=== PATIENT | male | born 1985 | race American Indian/Alaskan Native ===

== ENCOUNTER 2018-01-31 19:31 | Emergency (ER) | payer SELFPAY ==
[2018-01-31] MEDS ORDERED: NACL 0.9% 0 ML IR ONE (20:26)
[2018-01-31 20:32] LABS: BUN/Creatinine Ratio 10; Blood Urea Nitrogen 9 mg/dL (9-20); Calcium 8.8 mg/dL (8.4-10.2); Hemolysis Index 5
[2018-01-31 20:35] LABS: Basophils % (Auto) 0.6 % (0.0-1.8); Eosinophils # (Auto) 0.1 K/mm3 (0.0-0.4); Hematocrit 43.8 % (35.5-45.6); Hemoglobin 14.5 gm/dl (11.8-15.2); Lymphocytes # (Auto) 2.4 K/mm3 (1.2-5.4); Lymphocytes % (Auto) 37.9 % (13.4-35.0); Mean Corpuscular HGB Conc 33 % (32-34); Mean Corpuscular Hemoglobin 30 pg (28-32); Mean Corpuscular Volume 90 fl (84-94); Monocytes # (Auto) 0.6 K/mm3 (0.0-0.8); Monocytes % (Auto) 9.3 % (0.0-7.3); Platelet Count 119 K/mm3 (140-440); Red Blood Count 4.85 M/mm3 (3.65-5.03); Red Cell Distribution Width 14.3 % (13.2-15.2)
[2018-01-31] MEDS ORDERED: TYLENOL PO ONE (21:04)
[2018-01-31] MEDS ORDERED: TENIVAC IM ONE (21:05)
--- NOTE | 2018-01-31 21:29 | Emergency Department Report ---
HPI - General Chief Complaint: Psych Time Seen by Provider: 01/31/18 20:24 - HPI HPI: The patient is a 32-year-old male with a significant history of mental health disease, who presents for evaluation of mental health. The patient reports constant and severe status or hopelessness for the past one day. He also reports positive suicidal ideations and attempted suicide. The patient cut his left wrist at 5 PM earlier today and attempted to commit suicide. The patient denies fever, headache, unexplained weight loss or weight gain, heat or cold intolerance, skin, hair, or nail changes, neuro deficits, homicidal ideations, or auditory or visual hallucinations. ED Past Medical Hx - Past Medical History Previous Medical History?: No - Surgical History Past Surgical History?: No - Social History Smoking Status: Never Smoker Substance Use Type: None ED Review of Systems ROS: Stated complaint: SUICIDAL IDEATIONS Other details as noted in HPI Constitutional: denies: fever ENT: denies: throat or neck pain Respiratory: denies: cough, shortness of breath Cardiovascular: denies: chest pain Endocrine: denies unexplained weight loss or gain Gastrointestinal: denies: abdominal pain, nausea Genitourinary: denies: dysuria Musculoskeletal: denies: leg swelling Skin: denies: rash Neurological: denies: headache Hematological/Lymphatic: denies: easy bleeding or easy bruising Psych: reports sadness or hopelessness Physical Exam - Physical Exam Vital Signs: Vital Signs 01/31/18 01/31/18 19:44 19:49 Temperature 98.6 F Pulse Rate 89 Respiratory 18 20 Rate Blood Pressure 110/61 O2 Sat by Pulse 95 98 Oximetry Physical Exam: General: well-nourished, well-developed, no acute distress Head: Normocephalic, atraumatic Eyes: normal sclera ENT: Mucous membranes are pink and moist Neck: trachea midline, neck supple, No neck stiffness, no cervical adenopathy Respiratory: Breath sounds equal bilaterally, no wheezing, rales, or rhonchi Cardio: S1 and S2 present, no murmurs, rubs, gallops, capillary refill is brisk Abdomen: Normoactive bowel sounds, soft abdomen, no tenderness Chest WALL/Back: No tenderness to palpation of the chest wall, no CVA tenderness with percussion Musc: Multiple old well-healed and new superficial cuts to the left wrist present, 2 new superficial cuts present with minimal bleeding, wound edges nearly approximated, distal sensation, motor deficit, and pulses intact at the left wrist/hand No pitting edema Skin: No rash Neuro: no facial drooping, normal speech Psych: Flat affect, poor insight, depressed mood, patient withdrawn, reporting continued suicidal ideation ED Course Vital Signs 01/31/18 01/31/18 19:44 19:49 Temperature 98.6 F Pulse Rate 89 Respiratory 18 20 Rate Blood Pressure 110/61 O2 Sat by Pulse 95 98 Oximetry ED Medical Decision Making - Lab Data Result diagrams: 01/31/18 20:02 01/31/18 20:02 - Medical Decision Making The patient was seen and examined by myself. The patient is placed on a groundwater monitoring technician and continuous pulse ox. On initial evaluation, the patient was found to be in no distress. Labs are obtained. The patient's left wrist wounds were cleaned with soap and water. As the patient's wounds are superficial and wound edges are nearly approximated, laceration repair is not warranted at this time. The patient was given a tetanus immunization. The patient is given a tablet of Tylenol for his pain. The patient's superficial cuts were approximated with Dermabond. Lab results are grossly unremarkable. The patient is medically clear. Mental health is consulted. Mental health evaluates the patient and agrees that the patient is at risk of harm to self. A 1013 is completed. The patient will be admitted to a psychiatric facility once bed placement is obtained. Critical care attestation.: If time is entered above; I have spent that time in minutes in the direct care of this critically ill patient, excluding procedure time. ED Disposition Clinical Impression: Suicidal behavior with attempted self-injury, Suicidal ideation Disposition: [id number] PSY HOSP/PSY UNIT Is pt being admited?: No Does the pt Need Aspirin: No Condition: Serious Referrals: PRIMARY CARE, [Primary Care Provider] - 3-5 Days Time of Disposition: 21:29
[2018-01-31] MEDS ORDERED: ALUM-MAG HYDROX-SIMETH 200-200-20MG/5ML PO PRN (21:34)
[2018-01-31] MEDS ORDERED: MILK OF MAGNESIA PO PRN (21:34)
--- NOTE | 2018-02-01 14:01 | Consultation ---
History of Present Illness - Reason for Consult Consult date: 02/01/18 Reason for consult: Mental Health Evaluation Requesting physician: GREGORY DESAI - Chief Complaint Chief complaint: "I wanted to " - History of Present Psychiatric Illness 32-year-old AA male presenting to the ER for SI's. Today the patient is calm and cooperative during the assessment. He stated that his family and girlfriend is doing him "wrong". Also, he stated that he is experiencing life stressors ( financial problems and wanting to be a better father). He stated after arguing with his girlfriend, he decided that he wanted to , so he cut his left wrist. He stated that he had no reason to live. He denies any previous suicide attempts or mental health dx. He acknowledged experiencing erratic sleep lately , but denies any manic episodes in the past. He denies HI's and AVH's. He would not confirm or deny SI's when asked. He admit to smoking marijuana and consumption of alcohol (etoh) "sometimes." Medications and Allergies Allergies Allergy/AdvReac Type Severity Reaction Status Date / Time No Known Allergies Allergy Unverified 01/31/18 19:48 Active Meds: Active Medications Al Hydrox/Mg Hydrox/Simethicone (Alum-Mag Hydrox-Simeth [id number]/5ml) 30 ml PO Q4HR PRN PRN Reason: Indigestion Magnesium Hydroxide (Milk Of Magnesia) 30 ml PO Q12HR PRN PRN Reason: Constipation Past psychiatric history - Past Medical History Past Medical History: No medical history Past Surgical History: No surgical history - past Psychiatric treatment and history psychiatric treatment history: Denies a psy hx and a fam psy hx. - Social History Social history: lives with family Mental Status Exam - Vital signs Last Vital Signs Temp 98.6 F 01/31/18 19:44 Pulse 89 01/31/18 19:44 Resp 18 02/01/18 11:47 BP 110/61 01/31/18 19:44 Pulse Ox 98 02/01/18 11:47 - Exam Narrative exam: MSE: Appearance: calm, cooperative Behavior: regular eye contact Speech: regular rate and tone Mood: withdrawn Affect: congruent to mood Thought Process: circumstantial Thought Content: denies HI's and AVH's, he would not confirm or deny SI's Motor Activity: lying in bed Cognition: A/O x 3 Insight: variable Judgment: poor Results Result Diagrams: 01/31/18 20:02 01/31/18 20:02 Abnormal lab results 01/31/18 01/31/18 01/31/18 Range/Units 20:02 20:02 20:02 Plt Count 119 L (140-440) K/mm3 Lymph % (Auto) 37.9 H (13.4-35.0) % Sully % (Auto) 9.3 H (0.0-7.3) % Salicylates < 0.3 L (2.8-20.0) mg/dL Acetaminophen < 5.0 L (10.0-30.0) ug/mL All other labs normal. Assessment and Plan Assessment and plan: Impression: MDD, Severe Type. Today the patient is calm and cooperative during the assessment. UDS/UA uncollected. DDx: R/O Bipolar DO Recommendation/Plan: Continue 1013 with placement to inpatient psy services. Start Remeron 15 mg PO HS for depression. Discussed possible suicidality/ medication induced pascale with patient reference Remeron. Discussed generalized coping skills with patient. Informed the patient's assigned nurse that the UDS/ UA need to be collected.
[2018-02-01 20:35] LABS: Bilirubin,Urine NEG (Negative); Blood,Urine NEG (Negative); Color,Urine Yellow (Yellow); Mucus,Urine 3+ /HPF; Protein,Urine <15 mg/dL mg/dL (Negative)
[2018-02-01 20:42] LABS: Amphetamine Screen,Urine PRESUMPTIVE NEGATIVE; Benzodiazepines Screen,Urine PRESUMPTIVE NEGATIVE; Cannabinoid Screen,Urine PRESUMPTIVE NEGATIVE; Cocaine Screen,Urine PRESUMPTIVE NEGATIVE; Methadone Screen,Urine PRESUMPTIVE NEGATIVE; Opiate Screen,Urine PRESUMPTIVE NEGATIVE
[2018-02-01] MEDS: REMERON PO SCH (22:48)
--- NOTE | 2018-02-02 17:59 | Progress Note ---
Subjective - Reason for Consult Consult date: 02/02/18 Reason for consult: follow up - Chief Complaint Chief complaint: "I don't want to be here." 32-year-old AA male presented to the ER after cutting his wrist in a suicide attempt. Today the patient is calm and cooperative during the assessment. UDS is negative. He states he made a bad decision by hurting himself. He states, " I was raised better than that." He denies harming himself in the past. He states he went on job interview that morning and was thinking about how he is not providing for his children. He states he has been experiencing depression. He denies suicidal ideation now. He talked about his children often during the interview. He was hesitant in talking about his /girlfriend. Mental Status Exam - Vital signs Last Vital Signs Temp 97.3 F L 02/02/18 07:53 Pulse 63 02/02/18 07:53 Resp 18 02/02/18 13:25 BP 102/52 02/02/18 07:53 Pulse Ox 100 02/02/18 13:25 - Exam Narrative exam: Appearance: calm, cooperative Behavior: regular eye contact Speech: regular rate and tone Mood: depressed Affect: congruent to mood Thought Process: logical Thought Content: recent suicide attempt. he denies SI/HI or AVH Motor Activity: no abnormal movements Cognition: A/O x 3 Insight: variable Judgment: poor Assessment and Plan Impression: MDD, Severe Type. Today the patient is calm and cooperative during the assessment. UDS is negative. He states he made a bad decision by hurting himself. He states, "I was raised better than that." He denies harming himself in the past. He states he went on job interview that morning and was thinking about how he is not providing for his kids. He states he has been experiencing depression. He denies suicidal ideation now. He talked about his children often during the interview. DDx: R/O Bipolar DO Recommendation/Plan: Continue 1013 with placement to inpatient psy services. Continue Remeron 15 mg PO HS for depression.
[2018-02-02] MEDS: REMERON PO SCH (22:10)
--- NOTE | 2018-02-03 18:53 | Progress Note ---
Subjective - Reason for Consult Consult date: 02/03/18 Reason for consult: follow up - Chief Complaint Chief complaint: "I want to see my kids." 32-year-old AA male presented to the ER after cutting his wrist in a suicide attempt. Today the patient is calm and cooperative during the assessment. UDS is negative. He states he made a bad decision by hurting himself. He denies harming himself in the past. He denies suicidal ideation now. He talked about how he wants to see his children. He took remeron last night but does not want to take it tonight. Mental Status Exam - Vital signs Last Vital Signs Temp 98.3 F 02/03/18 08:41 Pulse 77 02/03/18 08:41 Resp 20 02/03/18 08:41 BP 109/85 02/03/18 08:41 Pulse Ox 100 02/03/18 08:41 - Exam Narrative exam: Appearance: calm, cooperative Behavior: regular eye contact Speech: regular rate and tone Mood: depressed Affect: congruent to mood Thought Process: logical Thought Content: he denies SI/HI or AVH Motor Activity: no abnormal movements Cognition: A/O x 3 Insight: variable Judgment: variable Assessment and Plan Impression: MDD, Severe Type. Today the patient is calm and cooperative during the assessment. UDS is negative. He states he made a bad decision by hurting himself. He denies suicidal ideation. DDx: R/O Bipolar DO Recommendation/Plan: Continue 1013 and reevaluate in 24 hours to determine need for ongoing hold. Continue Remeron 15 mg PO HS for depression.
[2018-02-03] MEDS: REMERON PO SCH (22:38)
--- NOTE | 2018-02-04 13:08 | Progress Note ---
Subjective - Reason for Consult Consult date: 02/04/18 Reason for consult: Psychiatry Follow-up - Chief Complaint Chief complaint: "I am okay now" 32-year-old AA male presented to the ER after cutting his wrist in a suicide attempt. Today the patient is calm and cooperative during the assessment. He is adamant that he made a "terrible mistake" by cutting himself. He denies SI/HI's and AVH's. He denies any side effects of his medication. He stated smoking marijuana "often." Mental Status Exam - Vital signs Last Vital Signs Temp 97.6 F 02/04/18 07:00 Pulse 71 02/04/18 07:00 Resp 17 02/03/18 21:28 BP 127/96 02/04/18 07:00 Pulse Ox 99 02/03/18 21:28 - Exam Narrative exam: MSE: Appearance: calm, cooperative Behavior: regular eye contact Speech: regular rate and tone Mood: "okay" Affect: congruent to mood Thought Process: circumstantial Thought Content: denies SI/HI's and AVH's Motor Activity: lying in bed Cognition: A/O x 3 Insight: fair Judgment: fair Assessment and Plan Impression: MDD, Severe Type. R/O Cannabis Use DO. Today the patient is calm and cooperative during the assessment. His UDS was collected after being in the ER for 24 hours. DDx: R/O Bipolar DO Recommendation/Plan: Gather collateral information and reevaluate the 1013 in 24 hours to determine proper dispo. Continue Remeron 15 mg PO HS for depression. Discussed possible suicidality/medication induced pascale with patient reference Remeron. Discussed generalized coping skills with patient. Discussed the importance to abstain from recreational drug use with patient.
[2018-02-04] MEDS: REMERON PO SCH (21:42)
--- NOTE | 2018-02-05 12:58 | Progress Note ---
Subjective - Reason for Consult Consult date: 02/05/18 Reason for consult: Psychiatry Follow-up - Chief Complaint Chief complaint: "I have learned my lesson" 32-year-old AA male presented to the ER after cutting his wrist in a suicide attempt. Today the patient is calm and cooperative during the assessment. Per collateral information from his fiance Ms Jenny Hooker at [phone], she stated that the patient got upset after an argument and "acted out" by cutting himself. She stated that she don't believe he wanted to kill himself. She denies any previous suicide attempts by the patient. She stated that he has learned his lesson and don't believe he will harm himself again. She stated that she feel safe for the patient to return home once discharged. The patient plan to follow up with outpatient psy/rehab services once discharged. He denies SI/HI's and AVH's. He denies any side effects of his medication. Mental Status Exam - Vital signs Last Vital Signs Temp 97.9 F 02/04/18 20:05 Pulse 70 02/04/18 20:05 Resp 18 02/04/18 20:05 BP 119/73 02/04/18 20:05 Pulse Ox 98 02/04/18 20:05 - Exam Narrative exam: MSE: Appearance: calm, cooperative Behavior: regular eye contact Speech: regular rate and tone Mood: "okay" Affect: congruent to mood Thought Process: logical Thought Content: denies SI/HI's and AVH's Motor Activity: lying in bed Cognition: A/O x 3 Insight: appropriate Judgment: appropriate Assessment and Plan Impression: MDD, Severe Type. R/O Cannabis Use DO. Today the patient is calm and cooperative during the assessment. The patient is no threat to self. DDx: R/O Bipolar DO, R/O Personality DO I. This screening and assessment is based on information collected from the following sources: II. SUICIDE RISK SCREENING (within last 30 days): A.) Suicidal thoughts/behaviors: Yes SUICIDE RISK ASSESSMENT III. FACTORS THAT INCREASE RISK: A.) Demographic and Substance Use Factors: Yes (Marijuana) B.) Current/Recent Factors (within past 3 months): Psychosocial/Environmental Factors: Life Stressors Physical Illness: None Cognitive/Psychological Factors: None C.) Historical Factors: None D.) Diagnostic/Symptom/Treatment Factors: None E.) Acute Risk Factor Severity (DESC; MILD/MOD/SEVERE): Mild Other factors for this individual that increase risk: None IV. FACTORS THAT DECREASE RISK: Resilience/Protective Factors: Patient want to decrease his stress Other factors for this individual that decrease risk: Patient denies a desire to harm self V. Clinician's Formulation of Risk and Determination of level of Care: This is a 32-year-old AA male who cut his left wrist prior to his arrival to the ER. He stated that he was going through "a lot mentally" and decide to cut his left wrist. The patient has a superficial laceration. He acknowledged that he should have not injured himself. He stated that his decision was a bad choice. He stated that he will follow-up with outpatient psy/rehab services once discharged. Since being hospitalized the patient has consistently denied the desire to harm himself. Additionally, he has become insightful about how to better address his current issues. The patient is not impaired by substance. He is able to take care of his ADLs and is not at imminent risk of harm to self or others. Consequently, it is the opinion of the treatment team that the patient is at low risk of suicide and does not meet criteria to continue an involuntary psychiatric hold. Estimation of Imminent Risk: Low due to the above explanation. Determination of Level of Care based on Suicide Risk: Outpatient follow-up. Narrative description of clinical reasoning. Given the fact that the patient is willing to engage in outpatient/rehab services care and has a supportive network (his fiance Jenny hooker), it is reasonable to expect that the patient will seek services. At this current time, he is not impulsive and does not have any risk factors to increase the likelihood of his impulsive behavior. Therefore, it is reasonable to expect that the patient will engage in outpatient /rehab services which will reduce further unsafe behaviors. . Plan and Interventions based on Suicide Risk: This patient will likely be stepped down to an outpatient mental health center in the community upon discharge and follow-up within 7 days of his discharge from the hospital. VII. Discharge/After Hours Support Plan: Patient can return back to the ER, call 911 or crisis line if symptoms of depression, anxiety, suicidality return. Recommendation/Plan: Rescind 1013. Continue Remeron 15 mg PO HS for depression. Discussed possible suicidality/medication induced pascale with patient reference Remeron. Discussed generalized coping skills with patient. Discussed the importance to abstain from recreational drug use with patient. The patient can follow up with [facility] for outpatient psy/rehab services.
--- NOTE | 2018-02-05 14:38 | Emergency Department Report ---
Blank Doc - Documentation Documentation: MH note reviewed. Patient not suicidal at this time. Will resend 1013 as recommended by psychiatric provider and prescribe Remeron 50 mg daily at bedtime and outpatient services.
[2018-02-05 16:48] VITALS: BP 121/80
== END 2018-02-05 14:55 ==
LOC: ED 19:31 → EEVIPCON 19:31 → ED 02-05 14:55
DX: T14.91XA Suicide attempt, initial encounter (principal); F32.9 Major depressive disorder, single episode, unspecified; F12.10 Cannabis abuse, uncomplicated; Z79.899 Other long term (current) drug therapy; X78.9XXA Intentional self-harm by unspecified sharp object, initial encounter; Y93.89 Activity, other specified; Y92.89 Other specified places as the place of occurrence of the external cause; Y99.8 Other external cause status
CPT/HCPCS: 36415; 80048; 80307; 81001; 85025; 90471; 90714; 99284; G0480; 80320